=== PATIENT | female | born 1940 | race African-American/Black ===

== ENCOUNTER 2024-04-01 02:37 | Emergency (ER) | payer OTHER ==
[~2024-04-01] VITALS: Ht 165.1 cm; Wt 60.0 kg
[2024-04-01 02:54] LABS: BASOPHILS % (AUTO) 0.8 % (0.0-2.0); EOSINOPHILS % (AUTO) 1.5 % (1.0-6.0); HEMATOCRIT 34.3 % (36-46); LYMPHOCYTES # (AUTO) 2.3 K/uL (1.0-4.8); LYMPHOCYTES % (AUTO) 17.6 % (22.0-44.0); MEAN CORPUSCULAR HEMOGLOBIN 28.7 pg (26.0-34.0); MEAN CORPUSCULAR HGB CONC 32.1 G/dL (31.0-37.0); MEAN CORPUSCULAR VOLUME 90 fL (80-100); MONOCYTES # (AUTO) 1.1 K/uL (0.1-1.0); MONOCYTES % (AUTO) 8.8 % (2.0-9.0); NEUTROPHILS # (AUTO) 9.2 K/uL (1.8-7.7); NEUTROPHILS % (AUTO) 71.3 % (40.0-70.0); PLATELET COUNT (AUTO) 181 K/uL (150-450); RED BLOOD CELL COUNT(AUTO) 3.82 MIL/uL (4.00-5.20); RED CELL DISTRIBUTION WIDTH 14.7 % (11.5-14.5); WHITE BLOOD COUNT (AUTO) 12.9 K/uL (4.5-11.0)
[2024-04-01] MEDS ORDERED: GLUC3SPR NASAL (03:03)
[2024-04-01] MEDS: AMIODARONE HCL 150 MG in DEXTROSE 5%-WATER 97 ML IV ONE (03:03)
[2024-04-01] MEDS ORDERED: ACET-784 PO (03:03)
[2024-04-01] MEDS ORDERED: ALBU18HF12 IH (03:03)
[2024-04-01] MEDS ORDERED: DICL100G60 TP (03:03)
[2024-04-01] MEDS ORDERED: EMPA25TA3 PO (03:03)
[2024-04-01] MEDS ORDERED: METH-386 PO (03:03)
[2024-04-01] MEDS ORDERED: APIX2.5T PO (03:03)
[2024-04-01] MEDS ORDERED: ATOR40TA28 PO (03:03)
[2024-04-01 03:04] LABS: CALCIUM, TOTAL 8.8 mg/dL (8.8-10.5); CREATININE 1.98 mg/dL (0.60-1.30); POTASSIUM 4.5 mmol/L (3.5-5.1)
[2024-04-01] MEDS: AMIODARONE HCL 360 MG in DEXTROSE 5%-WATER 242.8 ML IV ONE (03:04)
[2024-04-01 03:08] LABS: PROTHROMBIN TIME 10.6 SEC (9.4-11.6)
[2024-04-01 03:11] LABS: TROPONIN I-HIGH SENSITIVITY 5980 ng/L (<51)
[2024-04-01 03:28] LABS: ALBUMIN 2.6 g/dL (3.4-5.0); BILIRUBIN,TOTAL 0.3 mg/dL (0.1-1.0); TOTAL PROTEIN, SERUM 6.1 g/dL (6.4-8.2)
[2024-04-01 04:34] LABS: COVID AG,FIA SOURCE NASAL SWAB
[2024-04-01 05:11] LABS: TROPONIN I-HIGH SENSITIVITY 5112 ng/L (<51)
[2024-04-01 05:14] LABS: SARS-COV2 (COVID) ANTIGEN,FIA Negative (Negative)
[2024-04-01 06:15] VITALS: TEMP 98
[2024-04-01 09:15] VITALS: RESP 19
[2024-04-01 09:25] VITALS: BP 127/70; PULSE 88
[2024-04-01] MEDS: AMIODARONE HCL 540 MG in DEXTROSE 5%-WATER 239.2 ML IV ONE (09:25)
[2024-04-02] MEDS ORDERED: AMIODARONE HCL 750 MG in DEXTROSE 5%-WATER 485 ML IV SCH (03:00)
== END 2024-04-01 09:37 | disposition admitted as inpatient to this hospital (09) ==
LOC: EMS 02:37
DX: I48.91 Unspecified atrial fibrillation (principal); E11.9 Type 2 diabetes mellitus without complications; Z98.890 Other specified postprocedural states; Z20.822 Contact with and (suspected) exposure to COVID-19
CPT/HCPCS: 99291; 96365; 70450; 96375; 87426; 80053; 82550; 83880; 84484; 85025; 85610; 85730; 36415; 71045; 93005; J0282 ×2; J7060 ×2